=== PATIENT | male | born 1965 | race Caucasian/White ===

== ENCOUNTER 2017-08-21 12:56 | Emergency (ER) | payer SELFPAY ==
[2017-08-21] MEDS: HYDROCODONE/APAP (5/325) TAB PO (15:09)
[2017-08-21 16:48] LABS: TROPONIN-I < 0.012 ng/ml (0.00-0.12)
== END 2017-08-21 17:13 | disposition home or self-care (01) ==
LOC: FTE 12:56
DX: M54.41 Lumbago with sciatica, right side (principal); E11.9 Type 2 diabetes mellitus without complications
CPT/HCPCS: 71046; 72100; 84484; 93005; 99285-25